=== PATIENT | male | born 1975 | race Caucasian/White ===

== ENCOUNTER 2020-02-04 09:54 | Emergency (ER) | payer BC, OTHER ==
--- NOTE | 2020-02-04 10:04 | EDM.PDOC ---
ED HPI GENERAL MEDICAL PROBLEM - General Chief Complaint: Abdominal Pain Stated Complaint: GALLBLADDER ATTACK Time Seen by Provider: 02/04/20 09:56 Source of Information: Reports: Patient History Limitations: Reports: No Limitations - History of Present Illness INITIAL COMMENTS - FREE TEXT/NARRATIVE: 44-year-old male no past medical history presents for right flank pain radiating to groin. Pain started roughly 5 days ago. Patient was seen in outside ER, did not have imaging done. He was presumptively diagnosed with biliary colic and told to follow-up with primary care physician for an ultrasound. He did follow- up with primary care 4 days ago and has an ultrasound scheduled for next week. He notes that pain has been worsening. Comes in waves. Now seems to be radia ting to his groin whereas before it was just in his right flank. No association with food, nausea vomiting, fevers. He does note increased urinary frequency since last night. He does have a history of renal stones and states that this feels different. No history of abdominal surgeries Right Lower Abdomen Pain Score (Numeric/FACES): 6 - Related Data Allergies Allergy/AdvReac Type Severity Reaction Status Date / Time No Known Allergies Allergy Verified 02/04/20 10:01 Home Meds: Home Meds Indomethacin [Indocin] 50 mg PO TIDMEALS PRN #20 cap 05/03/16 [Rx] Past Medical History - Past Health History Medical/Surgical History: Denies Medical/Surgical History HEENT History: Reports: None Cardiovascular History: Reports: None Respiratory History: Reports: None Gastrointestinal History: Reports: None Genitourinary History: Reports: Renal Calculus Psychiatric History: Reports: None Dermatologic History: Reports: None - Infectious Disease History Infectious Disease History: Reports: Chicken Pox - Past Surgical History HEENT Surgical History: Reports: None Social & Family History - Family History Family Medical History: No Pertinent Family History - Caffeine Use Caffeine Use: Reports: Soda Caffeine Use Comment: 3 drinks/day ED ROS GENERAL - Review of Systems Review Of Systems: Comprehensive ROS is negative, except as noted in HPI. ED EXAM, GENERAL - Physical Exam Exam: See Below Exam Limited By: No Limitations General Appearance: Alert, WD/WN, No Apparent Distress Throat/Mouth: Normal Voice, No Airway Compromise Head: Atraumatic, Normocephalic Neck: Normal Inspection Respiratory/Chest: No Respiratory Distress, Lungs Clear, Normal Breath Sounds, No Accessory Muscle Use Cardiovascular: Normal Peripheral Pulses, Regular Rate, Rhythm GI/Abdominal: Soft, Non-Tender Back Exam: No: CVA Tenderness (L), CVA Tenderness (R) Extremities: Normal Inspection Neurological: Alert Psychiatric: Normal Affect, Normal Mood Skin Exam: Warm, Dry, Intact, Normal Color #1 Interpretation EKG Date: 02/04/20 Time: 10:10 Rhythm: NSR Rate (Beats/Min): 67 [place]: Normal P-Wave: Present QRS: Normal ST-T: Normal QT: Normal IL/PQ Interval: 146 Comparison: NA - No Prior EKG Course - Vital Signs Last Recorded V/S: Last Vital Signs Temp 95.5 F L 02/04/20 10:02 Pulse 77 02/04/20 10:39 Resp 22 H 02/04/20 10:02 BP 154/100 H 02/04/20 10:39 Pulse Ox 97 02/04/20 10:39 - Orders/Labs/Meds Orders: Active Orders 24 hr Category Date Time Status Sodium Chloride 0.9% [Saline Flush] Med 02/04/20 10:07 Active 10 ml FLUSH ASDIRECTED PRN Sodium Chloride 0.9% [Saline Flush] Med 02/04/20 10:07 Active 2.5 ml FLUSH ASDIRECTED PRN Saline Lock Insert [OM.PC] Stat Oth 02/04/20 10:07 Ordered Medication Orders Sodium Chloride (Saline Flush) 10 ml FLUSH ASDIRECTED PRN PRN Reason: Keep Vein Open Last Admin: 02/04/20 10:32 Dose: 10 ml Documented by: SPENCER Sodium Chloride (Saline Flush) 2.5 ml FLUSH ASDIRECTED PRN PRN Reason: Keep Vein Open Last Admin: 02/04/20 10:32 Dose: 2.5 ml Documented by: SPENCER Labs: Laboratory Tests 02/04/20 02/04/20 02/04/20 Range/Units 10:06 10:06 10:06 WBC 11.83 H (4.0-11.0) K/uL RBC 5.64 (4.50-5.90) M/uL Hgb 16.4 (13.0-17.0) g/dL Hct 48.3 (38.0-50.0) % MCV 85.6 (80.0-98.0) fL MCH 29.1 (27.0-32.0) pg MCHC 34.0 (31.0-37.0) g/dL RDW Std Deviation 42.7 (28.0-62.0) fl RDW Coeff of Hugh 14 (11.0-15.0) % Plt Count 210 (150-400) K/uL MPV 9.90 (7.40-12.00) fL Neut % (Auto) 79.5 (48.0-80.0) % Lymph % (Auto) 11.7 L (16.0-40.0) % [place] % (Auto) 7.7 (0.0-15.0) % Eos % (Auto) 0.8 (0.0-7.0) % Baso % (Auto) 0.3 (0.0-1.5) % Neut # (Auto) 9.4 H (1.4-5.7) K/uL Lymph # (Auto) 1.4 (0.6-2.4) K/uL [place] # (Auto) 0.9 H (0.0-0.8) K/uL Eos # (Auto) 0.1 (0.0-0.7) K/uL Baso # (Auto) 0.0 (0.0-0.1) K/uL Nucleated RBC % 0.0 /100WBC Nucleated RBCs # 0 K/uL Lactate 0.6 (0.20-2.00) mmol/L Sodium 138 (136-148) mmol/L Potassium 4.3 (3.5-5.1) mmol/L Chloride 104 (98-107) mmol/L Carbon Dioxide 23.7 (21.0-32.0) mmol/L BUN 19 H (7.0-18.0) mg/dL Creatinine 1.6 H (0.8-1.3) mg/dL Est Cr Clr Drug Dosing 61.47 mL/min Estimated GFR (MDRD) 47.4 ml/min Glucose 104 (74-106) mg/dL Calcium 9.0 (8.5-10.1) mg/dL Total Bilirubin 0.7 (0.2-1.0) mg/dL AST 22 (15-37) IU/L ALT 35 (14-63) IU/L Alkaline Phosphatase 94 (46-116) U/L Total Protein 7.7 (6.4-8.2) g/dL Albumin 4.4 (3.4-5.0) g/dL Globulin 3.3 (2.6-4.0) g/dL Albumin/Globulin Ratio 1.3 (0.9-1.6) Lipase 91 (73-393) U/L Urine Color Urine Appearance Urine pH (5.0-8.0) Ur Specific [place] (1.001-1.035) Urine Protein (NEGATIVE) mg/dL Urine Glucose (UA) (NEGATIVE) mg/dL Urine Ketones (NEGATIVE) mg/dL Urine Occult Blood (NEGATIVE) Urine Nitrite (NEGATIVE) Urine Bilirubin (NEGATIVE) Urine Urobilinogen (<2.0) EU/dL Ur Leukocyte Esterase (NEGATIVE) Urine RBC (0-2/HPF) Urine WBC (0-5/HPF) Ur Epithelial Cells (NONE-FEW) Urine Bacteria (NEGATIVE) 02/04/20 Range/Units 11:47 WBC (4.0-11.0) K/uL RBC (4.50-5.90) M/uL Hgb (13.0-17.0) g/dL Hct (38.0-50.0) % MCV (80.0-98.0) fL MCH (27.0-32.0) pg MCHC (31.0-37.0) g/dL RDW Std Deviation (28.0-62.0) fl RDW Coeff of Hugh (11.0-15.0) % Plt Count (150-400) K/uL MPV (7.40-12.00) fL Neut % (Auto) (48.0-80.0) % Lymph % (Auto) (16.0-40.0) % [place] % (Auto) (0.0-15.0) % Eos % (Auto) (0.0-7.0) % Baso % (Auto) (0.0-1.5) % Neut # (Auto) (1.4-5.7) K/uL Lymph # (Auto) (0.6-2.4) K/uL [place] # (Auto) (0.0-0.8) K/uL Eos # (Auto) (0.0-0.7) K/uL Baso # (Auto) (0.0-0.1) K/uL Nucleated RBC % /100WBC Nucleated RBCs # K/uL Lactate (0.20-2.00) mmol/L Sodium (136-148) mmol/L Potassium (3.5-5.1) mmol/L Chloride (98-107) mmol/L Carbon Dioxide (21.0-32.0) mmol/L BUN (7.0-18.0) mg/dL Creatinine (0.8-1.3) mg/dL Est Cr Clr Drug Dosing mL/min Estimated GFR (MDRD) ml/min Glucose (74-106) mg/dL Calcium (8.5-10.1) mg/dL Total Bilirubin (0.2-1.0) mg/dL AST (15-37) IU/L ALT (14-63) IU/L Alkaline Phosphatase (46-116) U/L Total Protein (6.4-8.2) g/dL Albumin (3.4-5.0) g/dL Globulin (2.6-4.0) g/dL Albumin/Globulin Ratio (0.9-1.6) Lipase (73-393) U/L Urine Color YELLOW Urine Appearance CLEAR Urine pH 6.0 (5.0-8.0) Ur Specific [place] 1.015 (1.001-1.035) Urine Protein NEGATIVE (NEGATIVE) mg/dL Urine Glucose (UA) NEGATIVE (NEGATIVE) mg/dL Urine Ketones NEGATIVE (NEGATIVE) mg/dL Urine Occult Blood MODERATE H (NEGATIVE) Urine Nitrite NEGATIVE (NEGATIVE) Urine Bilirubin NEGATIVE (NEGATIVE) Urine Urobilinogen 0.2 (<2.0) EU/dL Ur Leukocyte Esterase NEGATIVE (NEGATIVE) Urine RBC 2-3 (0-2/HPF) Urine WBC 0-1 (0-5/HPF) Ur Epithelial Cells RARE (NONE-FEW) Urine Bacteria RARE (NEGATIVE) Meds: Medications Generic Name Dose Route Start Last Admin Trade Name Freq PRN Reason Stop Dose Admin Sodium Chloride 10 ml 02/04/20 10:07 02/04/20 10:32 Saline Flush FLUSH 10 ml ASDIRECTED PRN Administration Keep Vein Open Sodium Chloride 2.5 ml 02/04/20 10:07 02/04/20 10:32 Saline Flush FLUSH 2.5 ml ASDIRECTED PRN Administration Keep Vein Open Discontinued Medications Generic Name Dose Route Start Last Admin Trade Name Laron PRN Reason Stop Dose Admin Sodium Chloride 1,000 mls @ 999 mls/hr 02/04/20 10:07 02/04/20 10:31 Normal Saline IV 02/04/20 11:07 999 mls/hr .Bolus ONE Administration Ketorolac Tromethamine 15 mg 02/04/20 10:18 02/04/20 10:35 Toradol IVPUSH 02/04/20 10:19 Not Given ONETIME ONE Ketorolac Tromethamine Confirm 02/04/20 10:19 02/04/20 10:30 Toradol Administered 02/04/20 10:20 Not Given Dose 15 mg .ROUTE .STK-MED ONE Ketorolac Tromethamine 15 mg 02/04/20 10:30 02/04/20 10:31 Toradol IVPUSH 02/04/20 10:31 15 mg NOW STA Administration - Re-Assessments/Exams Free Text/Narrative Re-Assessment/Exam: 02/04/20 12:24 CT imaging remarkable for a 5 mm renal stone. Had long discussion with patient about importance of urology follow-up. Will discharge with pain medication, Flomax. Departure - Departure Time of Disposition: 12:24 Disposition: Home, Self-Care 01 Condition: Good Clinical Impression: Kidney stone - Discharge Information Instructions: Renal Colic, [id number] Referrals: Marcus Daley MD [Primary Care Provider] - Forms: ED Department Discharge Additional Instructions: Your CT imaging is remarkable for a 5 mm kidney stone. Below is information for urology follow-up as the stone may not pass on its own and may require intervention. I sent pain medicine to your pharmacy as well as a medication called Flomax which will hopefully help facilitate the stone to pass on its own. Stay well-hydrated. If you develop vomiting and you are unable to keep anything down, worsening pain that is not well controlled at home, inability to urinate, fever, or any concerning symptoms you were encouraged to return to the emergency department for reassessment. [facility] [address] [place] [id number] The following information is given to patients seen in the emergency department who are being discharged to home. This information is to outline your options for follow-up care. We provide all patients seen in our emergency department with a follow-up referral. The need for follow-up, as well as the timing and circumstances, are variable depending upon the specifics of your emergency department visit. If you don't have a primary care physician on staff, we will provide you with a referral. We always advise you to contact your personal physician following an emergency department visit to inform them of the circumstance of the visit and for follow-up with them and/or the need for any referrals to a consulting specialist. The emergency department will also refer you to a specialist when appropriate. This referral assures that you have the opportunity for follow-up care with a specialist. All of these measure are taken in an effort to provide you with optimal care, which includes your follow-up. Under all circumstances we always encourage you to contact your private physician who remains a resource for coordinating your care. When calling for follow-up care, please make the office aware that this follow-up is from your recent emergency room visit. If for any reason you are refused follow-up, please contact the [facility] Emergency Department at and asked to speak to the emergency department charge nurse. Please follow up with your primary care physician. If you do not have a primary care physician, see below: [facility] [address] [place] [id number] [facility] [address] [place] [id number] Sepsis Event Note (ED) - Focused Exam Vital Signs: Vital Signs Temp Pulse Resp BP Pulse Ox 02/04/20 10:39 77 154/100 H 97 02/04/20 10:02 95.5 F L 69 22 H 155/106 H 97 - My Orders Last 24 Hours: My Active Orders 02/04/20 10:07 Sodium Chloride 0.9% [Saline Flush] 10 ml FLUSH ASDIRECTED PRN Sodium Chloride 0.9% [Saline Flush] 2.5 ml FLUSH ASDIRECTED PRN Saline Lock Insert [OM.PC] Stat - Assessment/Plan Last 24 Hours: My Active Orders 02/04/20 10:07 Sodium Chloride 0.9% [Saline Flush] 10 ml FLUSH ASDIRECTED PRN Sodium Chloride 0.9% [Saline Flush] 2.5 ml FLUSH ASDIRECTED PRN Saline Lock Insert [OM.PC] Stat
[2020-02-04] MEDS ORDERED: Sodium Chloride 0.9% 2.5 ML Syringe FLUSH PRN (10:07)
[2020-02-04] MEDS ORDERED: Sodium Chloride 0.9% 1,000 ML IV ONE (10:07)
[2020-02-04] MEDS ORDERED: Sodium Chloride 0.9% 10 ML Syringe FLUSH PRN (10:07)
[2020-02-04] MEDS ORDERED: Ketorolac 30 MG/ML SDV IVPUSH ONE (10:18)
[2020-02-04] MEDS ORDERED: Ketorolac 15 MG/ML SDV ONE (10:19)
[2020-02-04] MEDS ORDERED: Ketorolac 15 MG/ML SDV IVPUSH STA (10:30)
[2020-02-04 10:42] LABS: CARBON DIOXIDE,CO2 23.7 mmol/L (21.0-32.0); POTASSIUM,K 4.3 mmol/L (3.5-5.1)
--- NOTE | 2020-02-04 12:06 | CT ---
INDICATION: Right-sided flank pain COMPARISON: April 19, 2015 TECHNIQUE: CT examination of the abdomen and pelvis was performed without intravenous contrast. Thin section axial images were obtained from the lung bases through the pubic symphysis. Oral contrast was not administered. Please note that all CT scans at this facility use dose modulation, iterative reconstruction, and/or weight-based dosing when appropriate to reduce radiation dose to as low as reasonably achievable. FINDINGS: LUNG BASES: Minimal basilar atelectasis. Heart size normal and lung bases. LIVER/BILIARY SYSTEM:The liver is normal in size and configuration given the lack of intravenous contrast. There is no visible focal mass and there is no intra- or extra hepatic biliary ductal dilatation.The gall bladder appears normal. ADRENALS: Normal non-contrast appearance KIDNEYS, URETERS and BLADDER:The left kidney appears normal. An intrarenal calculus on the right measures 4.2 millimeters. There is right hydronephrosis and right hydroureter due to a 5 millimeter calculus about 1 centimeter from the right ureterovesical junction. The bladder as visualized appears normal SPLEEN:Normal non-contrast appearance. PANCREAS: Normal non-contrast appearance. RETROPERITONEUM and MESENTERY: There is no mass, adenopathy or aortic aneurysm. GASTROINTESTINAL SYSTEM: There is no evidence of diverticulitis, colitis, mechanical obstruction, or appendicitis. The small bowel as visualized appears normal. PELVIS: No mass, adenopathy or free fluid. OSSEOUS STRUCTURES and ABDOMINAL WALL: There is an age-appropriate appearance of the osseous structures.No significant abdominal wall defect. OTHER: No free fluid or free air. IMPRESSION: 1. Right-sided obstructive uropathy due to a 5 millimeter calculus about 1 centimeter from the right ureterovesical junction. Intrarenal calculus on the right measuring 4.2 millimeters. Normal appearing left kidney. 2. The examination is otherwise overall unremarkable. Please note that all CT scans at this facility use dose modulation, iterative reconstruction, and/or weight-based dosing when appropriate to reduce radiation dose to as low as reasonably achievable. Dictated by Jaspreet Morse MD @ Feb 04 2020 11:58AM Signed by Dr. Jaspreet Morse @ Feb 04 2020 12:04PM
[2020-02-04 15:28] VITALS: BP 146/90; PULSE 58
== END 2020-02-04 12:38 | disposition home or self-care (01) ==
LOC: MW.ED 09:54
DX: N13.2 Hydronephrosis with renal and ureteral calculous obstruction (principal)
CPT/HCPCS: 36415; 74176; 80053; 81001; 83605; 83690; 85025; 93005; 96374; 99284; J1885; J7030; 93010

== ENCOUNTER 2021-02-26 17:23 | Emergency (ER) | payer BC ==
[2021-02-26 18:47] VITALS: BP 156/100; PULSE 98
[2021-02-26] MEDS ORDERED: Sodium Chloride 0.9% 10 ML Syringe FLUSH PRN (18:52)
[2021-02-26] MEDS ORDERED: Sodium Chloride 0.9% 2.5 ML Syringe FLUSH PRN (18:52)
[2021-02-26] MEDS ORDERED: HYDROmorphone 1 MG/ML Syringe IVPUSH ONE (18:56)
[2021-02-26] MEDS ORDERED: Sodium Chloride 0.9% 1,000 ML IV ONE (18:56)
[2021-02-26] MEDS ORDERED: Ondansetron 4 MG/2 ML SDV IVPUSH ONE (18:56)
[2021-02-26 19:21] LABS: CARBON DIOXIDE,CO2 29.5 mmol/L (21.0-32.0); POTASSIUM,K 3.8 mmol/L (3.5-5.1)
--- NOTE | 2021-02-26 20:55 | CT ---
Indication: Right flank pain hematuria Technique: Noncontrast CT abdomen and pelvis Comparison: CT abdomen and pelvis 02/04/2020 Findings: Heart size normal. No pericardial effusion.Basilar atelectasis liver gallbladder pancreas adrenal glands unremarkable spleen unremarkable. Normal caliber abdominal aorta. Nonobstructing small right renal calculi. Moderate hydronephrosis and hydroureter due to right mid 5 millimeter stone. The left kidney is unremarkable. Urinary bladder unremarkable. Prostate gland unremarkable normal appendix. Bowel is unremarkable. No suspicious bony lesions. Impression: 1. Moderate hydronephrosis and hydroureter on the right due to a 5 millimeter mid ureteral stone. Please note that all CT scans at this facility use dose modulation, iterative reconstruction, and/or weight-based dosing when appropriate to reduce radiation dose to as low as reasonably achievable. Dictated by Ambika Mcfarland MD @ 02/26/2021 8:41:48 PM (Electronically Signed)
[2021-02-26] MEDS ORDERED: Tamsulosin 0.4 MG Cap.ER PO ONE (20:59)
--- NOTE | 2021-02-26 21:02 | EDM.PDOC ---
ED HPI GENERAL MEDICAL PROBLEM - General Chief Complaint: Back Pain or Injury Stated Complaint: BACK AND LEG PAIN, NAUSEA Time Seen by Provider: 02/26/21 19:51 - History of Present Illness INITIAL COMMENTS - FREE TEXT/NARRATIVE: CHIEF COMPLAINT(S): Abdominal pain HISTORY OF PRESENT ILLNESS: This is a 45-year-old man with a past medical history of nephrolithiasis who comes to the emergency department with a chief complaint of abdominal pain. The patient states that starting yesterday he was experiencing right-sided back pain that was sharp and resolved overnight however he woke up with the same pain this morning however it is now radiating into his right groin. He denies any testicular pain or swelling. He denies any penile discharge. He states that this feels similar to his prior kidney stone. He states that prior to arrival he was experiencing 10 out of 10 pain which he described as sharp and crampy not associated with any nausea, vomiting, hematuria, dysuria. He denies any fever, chills or vomiting. He states that he tried ibuprofen without any relief. He states that since being here the Dilaudid has helped. He denies any exacerbating factors. He denies any injury. REVIEW OF SYSTEMS: Constitutional: Denies fever, chills. Eyes: Denies eye pain Ears, Nose, Mouth, & Throat: Denies earache Cardiovascular: Denies chest pain Respiratory: Denies shortness of breath Gastrointestinal: Denies Nausea, vomiting, diarrhea, hematochezia. Genitourinary: Positive for right flank and right groin pain. Denies hematuria, dysuria, penile discharge, testicular pain Skin:Denies a rash MSK: Denies joint pain Neurological: Denies blurred vision Psychiatric: Denies depression PAST MEDICAL HISTORY: As per history of present illness and as reviewed below otherwise noncontributory. SURGICAL HISTORY: As per history of present illness and as reviewed below otherwise noncontributory. SOCIAL HISTORY: As per history of present illness and as reviewed below otherwise noncontributory. FAMILY HISTORY: As per history of present illness and as reviewed below otherwise noncontributory. EXAMINATION OF ORGAN SYSTEMS/BODY AREAS: Constitutional: Blood pressure is 156/100, heart rate 98, respiratory rate 16 with an oxygen saturation 97% on room air. Temperature 36.1 General: Well-appearing man who is in no acute distress Psychiatric: Appropriate mood and affect. Eyes: No scleral icterus or conjunctival erythema ENMT: Moist mucous membranes. No pharyngeal erythema Cardiovascular: Regular, rate, and rhythm. No gallops, murmurs, or rubs. Bilateral upper extremity pulses symmetric and intact. No peripheral edema. No JVD. Respiratory: Lungs clear to auscultation bilaterally. No wheezes, rales, or rhonchi. Gastrointestinal: Soft, non-tender, non-distended. Normoactive bowel sounds Genitourinary: Mild right CVA tenderness and right lower abdominal tenderness without any rebound. Musculoskeletal: Normal range of motion. Skin: No lesions or abrasions. Neurological: Alert, GCS 15 MEDICAL DECISION MAKING AND COURSE IN THE ED WITH INTERPRETATION/REVIEW OF DIAGNOSTIC STUDIES: This is a 45-year-old man with a past medical history of nephrolithiasis who comes to the emergency department with acute onset right flank pain with radiation to his groin. At this time I do suspect the possibly of recurrent nephrolithiasis. Obtain CBC, CMP, urinalysis. I will obtain a CT abdomen pelvis without contrast. We will provide the patient with Dilaudid for pain relief and Zofran for nausea. 1 L of normal saline at this time. DDx: Nephrolithiasis, appendicitis, musculoskeletal strain Laboratory: CBC is unremarkable. CMP reveals elevated creatinine of 1.4, hyperglycemia 141 otherwise unremarkable. Lipase is normal. Urinalysis reveals large amount of blood otherwise unremarkable. The radiological images were viewed by myself along with reading the report from the radiologist. CT abdomen pelvis with contrast reveals a 5 mm obstructing stone in the right ureter with moderate hydronephrosis and hydroureter. After labs and imaging I did discuss results with the patient. At this time the patient is at his baseline creatinine and has no evidence of infection. I did provide the patient with prescription for pain relief, Flomax and follow-up information with urology. He was given strict return precautions. The patient was amenable to discharge and had no further questions. DISPOSITION: The patient was discharged home in stable condition. The patient will follow up with urology within 1 week CONDITION: Fair PROCEDURES: None FINAL IMPRESSION(S)/DIAGNOSES: 1. Acute right urolithiasis/nephrolithiasis Carson Obrien M.D. Lower Back Pain Score (Numeric/FACES): 10 - Related Data Allergies Allergy/AdvReac Type Severity Reaction Status Date / Time No Known Allergies Allergy Verified 02/26/21 18:43 Home Meds: Home Meds Hydrocodone/Acetaminophen [HYDROcodone-Acetaminophen 5-325 MG] 1 each PO Q6H #12 tab 02/26/21 [Rx] Tamsulosin [Tamsulosin 24 Hr] 0.4 mg PO ONETIME #30 cap.er 02/26/21 [Rx] Past Medical History - Past Health History Medical/Surgical History: Denies Medical/Surgical History HEENT History: Reports: None Cardiovascular History: Reports: None Respiratory History: Reports: None Gastrointestinal History: Reports: None Genitourinary History: Reports: Renal Calculus Psychiatric History: Reports: None Dermatologic History: Reports: None - Infectious Disease History Infectious Disease History: Reports: Chicken Pox - Past Surgical History HEENT Surgical History: Reports: None Social & Family History - Family History Family Medical History: No Pertinent Family History - Tobacco Use Tobacco Use Status *Q: Never Tobacco User - Caffeine Use Caffeine Use: Reports: Soda Caffeine Use Comment: 3 drinks/day - Alcohol Use Days Per Week of Alcohol Use: 1 Number of Drinks Per Day: 2 Total Drinks Per Week: 2 - Recreational Drug Use Recreational Drug Use: No ED ROS GENERAL - Review of Systems Review Of Systems: See Below ED EXAM, GENERAL - Physical Exam Exam: See Below Course - Vital Signs Last Recorded V/S: Last Vital Signs Temp 36.1 C 02/26/21 18:44 Pulse 98 02/26/21 18:44 Resp 16 02/26/21 18:44 BP 156/100 H 02/26/21 18:44 Pulse Ox 97 02/26/21 18:44 - Orders/Labs/Meds Orders: Active Orders 24 hr Category Date Time Status Saline Lock Insert [OM.PC] Stat Oth 02/26/21 18:52 Ordered Labs: Laboratory Tests 02/26/21 02/26/21 02/26/21 Range/Units 18:55 18:55 19:26 WBC 9.41 (4.0-11.0) K/uL RBC 5.00 (4.50-5.90) M/uL Hgb 14.5 (13.0-17.0) g/dL Hct 42.8 (38.0-50.0) % MCV 85.6 (80.0-98.0) fL MCH 29.0 (27.0-32.0) pg MCHC 33.9 (31.0-37.0) g/dL RDW Std Deviation 43.6 (28.0-62.0) fl RDW Coeff of Hugh 14 (11.0-15.0) % Plt Count 190 (150-400) K/uL MPV 10.00 (7.40-12.00) fL Neut % (Auto) 70.0 (48.0-80.0) % Lymph % (Auto) 19.9 (16.0-40.0) % [place] % (Auto) 8.4 (0.0-15.0) % Eos % (Auto) 1.5 (0.0-7.0) % Baso % (Auto) 0.2 (0.0-1.5) % Neut # (Auto) 6.6 H (1.4-5.7) K/uL Lymph # (Auto) 1.9 (0.6-2.4) K/uL [place] # (Auto) 0.8 (0.0-0.8) K/uL Eos # (Auto) 0.1 (0.0-0.7) K/uL Baso # (Auto) 0.0 (0.0-0.1) K/uL Nucleated RBC % 0.0 /100WBC Nucleated RBCs # 0 K/uL Sodium 143 (136-148) mmol/L Potassium 3.8 (3.5-5.1) mmol/L Chloride 108 H (98-107) mmol/L Carbon Dioxide 29.5 (21.0-32.0) mmol/L BUN 14 (7.0-18.0) mg/dL Creatinine 1.4 H (0.8-1.3) mg/dL Est Cr Clr Drug Dosing 67.33 mL/min Estimated GFR (MDRD) 55.1 ml/min Glucose 141 H (74-106) mg/dL Calcium 8.4 L (8.5-10.1) mg/dL Total Bilirubin 0.4 (0.2-1.0) mg/dL AST 13 L (15-37) IU/L ALT 21 (14-63) IU/L Alkaline Phosphatase 79 (46-116) U/L Total Protein 7.0 (6.4-8.2) g/dL Albumin 3.6 (3.4-5.0) g/dL Globulin 3.4 (2.6-4.0) g/dL Albumin/Globulin Ratio 1.1 (0.9-1.6) Lipase 82 (73-393) U/L Urine Color YELLOW Urine Appearance HAZY Urine pH 6.0 (5.0-8.0) Ur Specific [place] >= 1.030 (1.001-1.035) Urine Protein NEGATIVE (NEGATIVE) mg/dL Urine Glucose (UA) NEGATIVE (NEGATIVE) mg/dL Urine Ketones NEGATIVE (NEGATIVE) mg/dL Urine Occult Blood LARGE H (NEGATIVE) Urine Nitrite NEGATIVE (NEGATIVE) Urine Bilirubin NEGATIVE (NEGATIVE) Urine Urobilinogen 0.2 (<2.0) EU/dL Ur Leukocyte Esterase NEGATIVE (NEGATIVE) Urine RBC 40-50 (0-2/HPF) Urine WBC 1-3 (0-5/HPF) Ur Epithelial Cells OCCASIONAL (NONE-FEW) Urine Bacteria FEW (NEGATIVE) Urine Mucus LIGHT (NONE-MOD) Meds: Medications Discontinued Medications Generic Name Dose Route Start Last Admin Trade Name [place] PRN Reason Stop Dose Admin Hydrocodone Bitart/Acetaminophen 1 tab 02/26/21 21:08 02/26/21 21:16 Acetaminophen/Hydrocodone 325-5 Mg Tab PO 02/26/21 21:09 1 tab ONETIME ONE Administration Hydromorphone HCl 1 mg 02/26/21 18:56 02/26/21 19:03 Hydromorphone 1 Mg/Ml Syringe IVPUSH 02/26/21 18:57 1 mg ONETIME ONE Administration Sodium Chloride 1,000 mls @ 999 mls/hr 02/26/21 18:56 02/26/21 19:03 Normal Saline IV 02/26/21 19:56 999 mls/hr STAT ONE Administration Ketorolac Tromethamine 30 mg 02/26/21 21:07 02/26/21 21:16 Ketorolac 15 Mg/Ml Sdv IVPUSH 02/26/21 21:08 Not Given ONETIME ONE Ketorolac Tromethamine Confirm 02/26/21 21:12 02/26/21 21:18 Ketorolac 30 Mg/Ml Sdv Administered 02/26/21 21:13 Not Given Dose 30 mg .ROUTE .STK-MED ONE Ketorolac Tromethamine 30 mg 02/26/21 21:15 02/26/21 21:16 Ketorolac 30 Mg/Ml Sdv IVPUSH 02/26/21 21:16 30 mg ONETIME ONE Administration Ondansetron HCl 4 mg 02/26/21 18:56 02/26/21 19:03 Ondansetron 4 Mg/2 Ml Sdv IVPUSH 02/26/21 18:57 4 mg ONETIME ONE Administration Sodium Chloride 10 ml 02/26/21 18:52 02/26/21 19:04 Sodium Chloride 0.9% 10 Ml Syringe FLUSH 10 ml ASDIRECTED PRN Administration Keep Vein Open Sodium Chloride 2.5 ml 02/26/21 18:52 02/26/21 19:05 Sodium Chloride 0.9% 2.5 Ml Syringe FLUSH 2.5 ml ASDIRECTED PRN Administration Keep Vein Open Tamsulosin HCl 0.4 mg 02/26/21 20:59 02/26/21 21:09 Tamsulosin 0.4 Mg Cap.Er PO 02/26/21 21:00 0.4 mg ONETIME ONE Administration Departure - Departure Time of Disposition: 21:02 Disposition: Home, Self-Care 01 Condition: Fair Clinical Impression: Nephrolithiasis - Discharge Information *PRESCRIPTION DRUG MONITORING PROGRAM REVIEWED*: No *COPY OF PRESCRIPTION DRUG MONITORING REPORT IN PATIENT MATTHIAS: No Prescriptions: Tamsulosin [Tamsulosin 24 Hr] 0.4 mg PO ONETIME #30 cap.er Hydrocodone/Acetaminophen [HYDROcodone-Acetaminophen 5-325 MG] 1 each PO Q6H #12 tab Instructions: Kidney Stones, [id number], Dietary Guidelines to Help Prevent Kidney Stones Referrals: Marcus Daley MD [Primary Care Provider] - Forms: ED Department Discharge Additional Instructions: You were evaluated today on an emergent basis. At this time you did have evidence of a 5 mm right kidney stone. There was no any evidence of infection or other abnormality. I recommend you use [place] every 6 hours for pain relief and alternate with ibuprofen 400 to 600 mg every 6 hours. I recommend you take Flomax daily and you follow-up with urology within 1 week. Please contact them at the number below. If you have any fever, vomiting or worsening pain I would like you to return to the emergency department. [facility] - Urology VINAYAK Whitaker [phone] *When you call for an appointment say "I was seen in the ER in [place] and I have a kidney stone and need follow up this week." The patient is informed of any results of their evaluation and diagnostic workup and all questions are answered. They are given discharge instructions and return precautions. The patient is stable for discharge. The patient states they understand and agree with the plan and that they will return if their symptoms get worse or if they have any new concerns. The following information is given to patients seen in the emergency department who are being discharged to home. This information is to outline your options for follow-up care. We provide all patients seen in our emergency department with a follow-up referral. The need for follow-up, as well as the timing and circumstances, are variable depending upon the specifics of your emergency department visit. If you don't have a primary care physician on staff, we will provide you with a referral. We always advise you to contact your personal physician following an emergency department visit to inform them of the circumstance of the visit and for follow-up with them and/or the need for any referrals to a consulting specialist. The emergency department will also refer you to a specialist when appropriate. This referral assures that you have the opportunity for follow-up care with a specialist. All of these measure are taken in an effort to provide you with optimal care, which includes your follow-up. Under all circumstances we always encourage you to contact your private physician who remains a resource for coordinating your care. When calling for follow-up care, please make the office aware that this follow-up is from your recent emergency room visit. If for any reason you are refused follow-up, please contact the [facility] Emergency Department at and asked to speak to the emergency department charge nurse. Sepsis Event Note (ED) - Evaluation Sepsis Screening Result: No Definite Risk - Focused Exam Vital Signs: Vital Signs Temp Pulse Resp BP Pulse Ox 02/26/21 18:44 36.1 C 98 16 156/100 H 97
[2021-02-26] MEDS ORDERED: Ketorolac 15 MG/ML SDV IVPUSH ONE (21:07)
[2021-02-26] MEDS ORDERED: Acetaminophen/HYDROcodone 325-5 MG Tab PO ONE (21:08)
[2021-02-26] MEDS ORDERED: Ketorolac 30 MG/ML SDV ONE (21:12)
[2021-02-26] MEDS ORDERED: Ketorolac 30 MG/ML SDV IVPUSH ONE (21:15)
== END 2021-02-26 21:19 | disposition home or self-care (01) ==
LOC: MW.ED 17:23
DX: N13.2 Hydronephrosis with renal and ureteral calculous obstruction (principal); Z79.899 Other long term (current) drug therapy
CPT/HCPCS: 36415; 74176; 80053; 81001; 83690; 85025; 96374; 96375; 99284; A9270; J1170; J1885; J2405; J7030

== ENCOUNTER 2021-10-09 06:37 | Emergency (ER) | payer BC ==
[2021-10-09] MEDS ORDERED: Ondansetron 4 MG/2 ML SDV IVPUSH ONE ×3 (07:09→12:13)
[2021-10-09] MEDS ORDERED: Ketorolac 30 MG/ML SDV IVPUSH ONE (07:09)
[2021-10-09] MEDS ORDERED: Famotidine 20 MG/2 ML SDV IVPUSH ONE (07:09)
[2021-10-09 09:17] LABS: CARBON DIOXIDE,CO2 22.1 mmol/L (21.0-32.0); POTASSIUM,K 3.8 mmol/L (3.5-5.1)
[2021-10-09] MEDS ORDERED: Sodium Chloride 0.9% 1,000 ML IV ONE (09:27)
[2021-10-09] MEDS ORDERED: Morphine 4 MG/ML VIAL IVPUSH ONE (09:27)
[2021-10-09 12:55] VITALS: BP 158/104; PULSE 76
== END 2021-10-09 12:50 | disposition home or self-care (01) ==
LOC: MW.ED 06:37
DX: K52.9 Noninfective gastroenteritis and colitis, unspecified (principal); I10 Essential (primary) hypertension; Z20.822 Contact with and (suspected) exposure to COVID-19
CPT/HCPCS: 36415; 71045; 74177; 80053; 83690; 83735; 84484; 85025; 87635; 93005; 96361; 96374; 96375; 96376; 99284; J1885; J2270; J2405; J3490; J7030; 93010; U0002

== ENCOUNTER 2024-10-22 22:19 | Emergency (ER) | payer BC ==
[2024-10-22 23:10] LABS: GLUCOSE,URINE NEGATIVE (NEGATIVE); OCCULT BLOOD,URINE MODERATE (NEGATIVE)
[2024-10-22 23:17] LABS: APPEARANCE,URINE HAZY
[2024-10-22 23:18] LABS: EPITHELIAL CELLS,URINE OCCASIONAL (NONE-FEW)
[2024-10-22 23:49] VITALS: BP 158/105; PULSE 64
== END 2024-10-22 23:48 | disposition home or self-care (01) ==
LOC: MW.ED 22:19
DX: N20.0 Calculus of kidney (principal); F17.210 Nicotine dependence, cigarettes, uncomplicated
CPT/HCPCS: 81001; 99282; 99284